=== PATIENT | female | born 1965 | race Caucasian/White ===

== ENCOUNTER → 2016-07-06 | Outpatient (CLI) | payer BC ==
[2014-01-22 07:46] VITALS: BP 125/76
[~2016-07-06] MED LIST: CHOL20004 PO; FOLI1TAB16 PO; IBUP-1027 PO; LEVO25TA4 PO; METH2.5T PO; REGADENOSON 0.4 MG/5 ML DISP.SYRIN. IV ONE; TRAM50TA PO; ZOLP5TAB PO
--- NOTE | 2016-07-06 13:39 | RAD ---
APPROVED REPORT Test Type: Pharmacological Stress Nurse/Tech: Shira Nascimento R.N. Test Indications: HUERTA Cardiac History: family hx Medications: see scanned copy Medical History: see ech Resting ECG: SR Resting Heart Rate: 57 bpm Resting Blood Pressure: 135/72mmHg Pretest Chest Pain: No chest pain Nurse/Tech Notes lungs cta, heart tones regular, good radial pulses Consent: The procedure was explained to the patient in lay terms. Informed consent was witnessed. Ruddy eout was entered into [employer]. History and Stress Test performed by Shira Nascimento R.N. Pharm. Details Pharmacologic stress testing was performed using 0.4mg per 5ml of regadenoson given intravenously ove r 7-10 seconds. Stress Symptoms No chest pain or symptoms. POST EXERCISE Reason for Termination: Infusion complete Target HR: No Max HR: 101 bpm Max Blood Pressure: 129/76mmHg Chest Pain: No. Arrhythmia: No. ST Change: No. INTERPRETATION Stress EKG Conclusion: No evidence of EKG changes with stress. Imaging Protocol IMAGE PROTOCOL: Rest Tc-99m/stress Tc-99m 1 day Rest: Stress: Viability: Radiopharm.Tc99m QpjpsgxxfQu40n Sestamibi Vxps60nJw 38mCi Duration 15min. 10min. Img Date 07/06/2016 07/06/2016 Inj-Img [id number]. 75min. Rest Admin Site:IV - Right AntecubitalAdministrator:SERENA Clark, ARRT (R)(N) Stress Admin Site: IV - Right AntecubitalAdministrator: SERENA Clark, ARRT (R)(N) STRESS DATA End Diast. Vol.67.0mlAv. Heart Rate70.0bpm End Syst. Vol.12.0mlCO Index BSA0.0L/min Myocardial Gaut250.0gEject. Bgfgotox55.0% Stress Rates Pk. Fill Rate3.79EDV/secLVtime Pk. Fill 219.81msec Pk. Empty Rate4.87ESV/secLVtime Pk. Kkzmg256.34msec 06/12 Pk. Fill1.68EDV/sec Stress Scores Regional WT0.00Summed WT0.00 Regional WM0.00Summed WM0.00 The rest and stress images show normal perfusion, normal contraction and thickening. LV Perf. Quant 17 Seg. SSS0.00 17 Seg. SRS0.00 17 Seg. SDS0.00 Stress Defect Extent (% LAD)0.00Rest Defect Extent (% LAD)0.00Rev. Defect Extent (% LAD)0.00 Stress Defect Extent (% LCX) 0.00Rest Defect Extent (% LCX)0.00Rev. Defect Extent (% LCX)0.00 Stress Defect Extent (% RCA)0.00Rest Defect Extent (% RCA)0.00Rev. Defect Extent (% RCA)0.00 Stress Defect Extent (% ANGELITO)0.00Rest Defect Extent (% ANGELITO)0.00Rev. Defect Extent (% ANGELITO)0.00 Other Information Quality:Good Risk Assessment: Low Risk Conclusion 1. No evidence of stress induced EKG changes. 2. Normal myocardial perfusion at stress/rest 3. Normal wall motion with EF of 65% 4. Low risk study.
== END | disposition home or self-care (01) ==
LOC: NM 08:57
PROVIDERS: ATTEND Physician Assistant Medical
DX: R06.09 Other forms of dyspnea (principal); Z82.49 Family history of ischemic heart disease and other diseases of the circulatory system
CPT/HCPCS: 78452; 93017; 96374; A9500; J2785

== ENCOUNTER → 2017-05-10 | Outpatient (CLI) | payer BC ==
[2014-01-22 07:46] VITALS: BP 125/76
[~2017-05-10] MED LIST changes: -CHOL20004 PO; +CHOL200074 PO; -REGADENOSON 0.4 MG/5 ML DISP.SYRIN. IV ONE
--- NOTE | 2017-05-10 11:14 | KCIC ---
EXAM: Abdomen sonogram. HISTORY: Right upper quadrant pain. TECHNIQUE: Sonographic imaging of the abdomen was performed. COMPARISON: None. FINDINGS: The liver is normal in size. There is hepatic steatosis. No focal hepatic lesion is seen. The gallbladder is unremarkable. The common bile duct is normal in caliber. The right kidney, pancreas, inferior vena cava and aorta are unremarkable. IMPRESSION: 1. Hepatic steatosis. 2. Otherwise, unremarkable abdomen sonogram. Electronically signed by: Glenny Dan MD (05/10/2017 11:11 AM) [facility]
== END | disposition home or self-care (01) ==
LOC: KCIC US 08:01
PROVIDERS: ATTEND Physician Assistant Medical
DX: K76.0 Fatty (change of) liver, not elsewhere classified (principal)
CPT/HCPCS: 76705

== ENCOUNTER → 2017-09-19 | Outpatient (CLI) | payer BC ==
[2017-09-19] MEDS: SINCALIDE 1.36 MCG in IV NORMAL SALINE 50ML 30 ML IV (10:39)
== END | disposition home or self-care (01) ==
LOC: NM 09:04
DX: R10.11 Right upper quadrant pain (principal)
CPT/HCPCS: 78226; 96374; 96375; A9537; J2805

== ENCOUNTER → 2017-10-09 | Day surgery (SDC) | payer BC ==
[~2017-10-09] MED LIST changes: -CHOL200074 PO; +DEXAMETHASONE SOD PHOS 20 MG/5 ML VIAL.; -FOLI1TAB16 PO; +GLUCAGON,HUMAN RECOMBINANT 1 MG/ML VIAL.; +GLYCOPYRROLATE 1 MG/5 ML VIAL.; +HYDROmorphone 2 MG/ML VIAL IV; -IBUP-1027 PO; -LEVO25TA4 PO; +LIDOCAINE 1% PF 2 ML VIAL. ID; +LIDOCAINE 2% PF Vial for OR 5 ML VIAL.; -METH2.5T PO; +MIDAZOLAM HCL/PF 2 MG/2 ML VIAL.; +MORPHINE SULFATE 4 MG/ML DISP.SYRIN. IV; +NEOSTIGMINE METHYLSULFATE 5 MG/5 ML SYRINGE.; +ONDANSETRON PF 4 MG/2 ML VIAL.; +PROCHLORPERAZINE 10 MG/2 ML VIAL.; +PROPOFOL 20 ML IV; +ROCURONIUM 50 MG/5 ML VIAL.; +SEVOFLURANE 31 TO 60 MINUTES. IH; +SURGICEL HEMOSTAT 4X8 EACH.; -TRAM50TA PO; -ZOLP5TAB PO; +fentaNYL PF VIAL 100 MCG/2 ML VIAL; +fentaNYL PF VIAL 100 MCG/2 ML VIAL IV; +oxyCODONE/APAP 5/325 1 TAB TABLET
[2017-10-09 07:06] LABS: ADD MAN DIFF? NO
[2017-10-09] MEDS: IV RINGERS,LACTATED 1000ML 1,000 ML IV ×2 (07:16→09:14)
[2017-10-09 07:18] LABS: ANION GAP 10 (6-14); BLOOD UREA NITROGEN 16 mg/dL (7-20); CALCIUM 8.3 mg/dL (8.5-10.1); CARBON DIOXIDE 24 mmol/L (21-32); CHLORIDE 107 mmol/L (98-107); CREATININE 0.7 mg/dL (0.6-1.0); GFR 87.9; GLUCOSE 105 mg/dL (70-99); POTASSIUM 3.9 mmol/L (3.5-5.1); SODIUM 141 mmol/L (136-145)
[2017-10-09 07:24] LABS: ALBUMIN 3.5 g/dL (3.4-5.0); TOTAL BILIRUBIN 0.3 mg/dL (0.2-1.0)
[2017-10-09 07:29] LABS: BASO # 0.1 x10^3/uL (0.0-0.2); BASO % 1 % (0-3); EOS # 0.2 x10^3/uL (0.0-0.7); EOS % 3 % (0-3); HEMATOCRIT 39.7 % (36.0-47.0); HEMOGLOBIN 13.6 g/dL (12.0-15.5); LYMPH # 1.8 x10^3/uL (1.0-4.8); LYMPH % 27 % (24-48); MEAN CORPUSCULAR HEMOGLOBIN 31 pg (25-35); MEAN CORPUSCULAR HGB CONC 34 g/dL (31-37); MEAN CORPUSCULAR VOLUME 92 fL (79-100); MONO % 14 % (0-9); NEUT # 3.6 x10^3uL (1.8-7.7); NEUT % 55 % (31-73); PLATELET COUNT 290 x10^3/uL (140-400); RED BLOOD COUNT 4.33 x10^6/uL (3.50-5.40); RED CELL DISTRIBUTION WIDTH 12.9 % (11.5-14.5); WHITE BLOOD COUNT 6.6 x10^3/uL (4.0-11.0)
[2017-10-09] MEDS: SCOPOLAMINE 1.5MG PATCH. TD (07:29)
[2017-10-09] MEDS: BUPIVACAINE-EPI 0.25%-1:200000 50 ML VIAL. (08:17)
[2017-10-09] MEDS: IOHEXOL 300 MG/ML 100ML VIAL. (08:27)
[2017-10-09] MEDS: PROCHLORPERAZINE 10 MG/2 ML VIAL. IV (09:41)
[2017-10-09] MEDS: fentaNYL PF VIAL 100 MCG/2 ML VIAL IV ×2 (09:41→10:03)
[2017-10-09] MEDS: oxyCODONE/APAP 5/325 1 TAB TABLET PO (10:29)
== END | disposition home or self-care (01) ==
LOC: SURG 06:31
DX: K81.1 Chronic cholecystitis (principal); I10 Essential (primary) hypertension; E03.9 Hypothyroidism, unspecified; F41.9 Anxiety disorder, unspecified; Z79.899 Other long term (current) drug therapy; Z90.710 Acquired absence of both cervix and uterus; Z98.890 Other specified postprocedural states; Z82.49 Family history of ischemic heart disease and other diseases of the circulatory system; Z87.891 Personal history of nicotine dependence; Z88.0 Allergy status to penicillin; E66.9 Obesity, unspecified; Z68.31 Body mass index [BMI] 31.0-31.9, adult; M06.849 Other specified rheumatoid arthritis, unspecified hand; M06.8 Other specified rheumatoid arthritis; Z86.14 Personal history of Methicillin resistant Staphylococcus aureus infection
CPT/HCPCS: 36415; 74300; 80048; 82040; 82247; 85025; 88304; A7015; J0780; J1100; J1610; J1956; J2250; J2405; J2704; J2710; J3010; J3490; J7030; J7120; Q9967

== ENCOUNTER → 2018-09-05 | Outpatient (CLI) | payer BC ==
[2017-10-09 11:45] VITALS: BP 111/59
[~2018-09-05] MED LIST changes: +ACET500T33 PO; +CHOL200074 PO; -DEXAMETHASONE SOD PHOS 20 MG/5 ML VIAL.; +DOCU50CA9 PO; +ERGO500027 PO; +ESCITALOPRAM OXA5 M1 PO; +FOLI1TAB16 PO; -GLUCAGON,HUMAN RECOMBINANT 1 MG/ML VIAL.; -GLYCOPYRROLATE 1 MG/5 ML VIAL.; +HYDR12.58 PO; -HYDROmorphone 2 MG/ML VIAL IV; +IBUP-1027 PO; +LEVO100T5 PO; +LEVO25TA4 PO; -LIDOCAINE 1% PF 2 ML VIAL. ID; -LIDOCAINE 2% PF Vial for OR 5 ML VIAL.; +METH2.5T PO; -MIDAZOLAM HCL/PF 2 MG/2 ML VIAL.; -MORPHINE SULFATE 4 MG/ML DISP.SYRIN. IV; -NEOSTIGMINE METHYLSULFATE 5 MG/5 ML SYRINGE.; -ONDANSETRON PF 4 MG/2 ML VIAL.; +OXYC1TAB15 PO; -PROCHLORPERAZINE 10 MG/2 ML VIAL.; -PROPOFOL 20 ML IV; -ROCURONIUM 50 MG/5 ML VIAL.; -SEVOFLURANE 31 TO 60 MINUTES. IH; -SURGICEL HEMOSTAT 4X8 EACH.; +TRAM50TA PO; +ZOLP10TA PO; +ZOLP5TAB PO; -fentaNYL PF VIAL 100 MCG/2 ML VIAL; -fentaNYL PF VIAL 100 MCG/2 ML VIAL IV; -oxyCODONE/APAP 5/325 1 TAB TABLET
--- NOTE | 2018-09-05 09:59 | KCIC ---
EXAMINATION: Magnetic resonance imaging (MRI) of the lumbar spine without contrast 09/05/2018 8:45 AM HISTORY: Bilateral lower extremity weakness. Chronic low back pain with severe left leg weakness. TECHNIQUE: Multiplanar multi-weighted MRI of the lumbar spine was performed without intravenous contrast using the standard lumbar spine protocol. Contrast information: None administered. COMPARISON: MRI lumbar spine February 20, 2016 FINDINGS: The alignment of the lumbar spine is normal. Vertebral bodies demonstrate normal signal intensity on all sequences. There are no compression fractures. The conus medullaris terminates at the level of L1. The distal spinal cord signal intensity is normal. There is mild disc height loss at L5-S1 with disc desiccation and annular fissure. Limited views of the abdomen and pelvis show no soft tissue abnormality. The aorta is normal. L3-L4: The disc is normal in configuration. There is no facet arthropathy. There is no neuroforaminal stenosis. There is no spinal canal stenosis. L4-L5: There is minimal disc bulge. Is mild facet arthropathy ligamentum flavum infolding. No significant neuroforaminal or spinal canal stenosis. L5-S1: There is mild disc bulge with central disc protrusion. There is mild/moderate facet arthropathy. There is mild bilateral neuroforaminal stenosis. No spinal canal stenosis. IMPRESSION: Mild degenerative changes of the lumbar spine as described in detail above. Electronically signed by: Camille Cortez MD (09/05/2018 9:56 AM) [facility]
== END | disposition home or self-care (01) ==
LOC: KCIC MRI 08:26
PROVIDERS: ATTEND Family Medicine
DX: M47.816 Spondylosis without myelopathy or radiculopathy, lumbar region (principal); M51.26 Other intervertebral disc displacement, lumbar region; M48.062 Spinal stenosis, lumbar region with neurogenic claudication; R53.1 Weakness; Z88.1 Allergy status to other antibiotic agents
CPT/HCPCS: 72148

== ENCOUNTER → 2020-05-13 | Outpatient (CLI) | payer BC ==
[2017-10-09 11:45] VITALS: BP 111/59
--- NOTE | 2020-05-13 16:45 | KCIC ---
Bilateral digital screening mammograms with 3-D tomosynthesis: Reason for examination: Routine screening. Comparison is made to previous studies dated 05/30/2015 and 05/26/2014. Bilateral mammograms in CC and oblique projections were obtained with 2-D imaging and 3-D tomosynthesis imaging on a Siemens Inspiration unit and reviewed on the workstation. Interpretation was made with the benefit of CAD. The skin and nipples show no abnormalities. No abnormal axillary lymph nodes are seen. The breast parenchyma is heterogeneously dense. (Breast density: Category C.) There are nodular parenchymal densities seen bilaterally within the dense parenchyma. Further evaluation with ultrasound is recommended. There are no suspicious calcifications seen. Impression: Dense breast parenchyma with nodular areas of parenchymal density seen bilaterally. Recommend further evaluation with ultrasound.. Your patient's mammogram demonstrates that she has dense breast tissue (breast density category C or D), which could hide abnormalities, and if she has other risk factors for breast cancer that have been identified, she might benefit from supplemental screening tests that may be suggested by you as her ordering physician. Dense breast tissue, in and of itself, is a relatively common condition. Therefore, this information is not provided to cause undue concern, but rather to raise your awareness and to promote discussion with your patient regarding the presence of other risk factors, in addition to dense breast tissue. Your patient's mammography results will be sent to her. BI-RAD Category 0: Incomplete. Needs additional imaging evaluation. "Our facility is accredited by the [employer] Mammography Program." This patient's information has been entered into a reminder system for the patient to be notified with the results of her examination and a target date for the next mammogram. Electronically signed by: Herlinda Henderson MD (05/13/2020 3:04 PM) [facility]
== END ==
LOC: KCIC MAMMO 09:19
PROVIDERS: ATTEND Family Medicine
DX: Z12.31 Encounter for screening mammogram for malignant neoplasm of breast (principal)
CPT/HCPCS: 77063; 77067

== ENCOUNTER → 2020-05-20 | Outpatient (CLI) | payer BC ==
[2017-10-09 11:45] VITALS: BP 111/59
--- NOTE | 2020-05-20 16:08 | RAD ---
Examination: US breast bilateral History: Reason: ABNORMAL MAMMOGRAM CALLBACK / Comparison/Correlation: 05/30/2015 and 05/13/2020 mammogram exam Findings: Whole breast ultrasound bilaterally was performed. Axillary region bilaterally was also clarissa ged. Right subareolar ductal ectasia is present. No suspicious flow in this region. No masses identified. No suspicious fluid collections. No enlarged axillary lymph nodes. Impression: BI-RADS Category 1-negative. Annual screening mammography recommended. Electronically signed by: Ammon Paul MD (05/20/2020 4:06 PM) [id number]
== END ==
LOC: US 13:56
PROVIDERS: ATTEND Family Medicine
DX: N60.41 Mammary duct ectasia of right breast (principal)
CPT/HCPCS: 76641-50

== ENCOUNTER → 2021-10-27 | Outpatient (CLI) | payer BC ==
[2017-10-09 11:45] VITALS: BP 111/59
[~2021-10-27] MED LIST changes: +REGADENOSON 0.4 MG/5 ML DISP.SYRIN. IV ONE
--- NOTE | 2021-10-27 15:54 | RAD ---
MR#: [id number] Date of Study: 10/27/2021 Ordering Physician: JEFF BOLTON, Referring Physician: LAUREANO MADRID Tech: THOMAS Elena APPROVED REPORT Test Type: Pharmacological Stress Nurse/Tech: Meek Silverio RN Test Indications: Chest Pain Cardiac History: Smoker Medications: See Electronic Medical Record Medical History: See Electronic Medical Record Resting ECG: SR Resting Heart Rate: 66 bpm Resting Blood Pressure: 118/71mmHg Pretest Chest Pain: None Nurse/Tech Notes Lungs CTA, S1S2 Consent: The procedure was explained to the patient in lay terms. Informed consent was witnessed. Ruddy eout was entered into [employer]. History and Stress Test performed by THOMAS Elena Pharm. Details Pharmacologic stress testing was performed using 0.4mg per 5ml of regadenoson given intravenously ove r 7-10 seconds. Stress Symptoms No chest pain or symptoms. POST EXERCISE Reason for Termination: Infusion complete Max HR: 133 bpm Max Blood Pressure: 130/60mmHg Blood Pressure response to exercise: Normal blood pressure response during stress. Heart Rate response to exercise: Normal Chest Pain: No. Arrhythmia: No. ST Change: No. INTERPRETATION Stress EKG Conclusion: Baseline EKG showed sinus rhythm. No ischemic changes at peak stress. No arr hythmias. Imaging Protocol IMAGE PROTOCOL: Rest Tc-99m/stress Tc-99m 1 day Rest: Stress: Viability: Radiopharm.Tc99m EdwacnemhFp14s Sestamibi Dose10.5mCi 32mCi Duration 15min. 13min. Img Date 10/27/2021 10/27/2021 Inj-Img [id number]. 60min. Rest Admin Site:IV - Right AntecubitalAdministrator:THOMAS Elena Stress Admin Site: IV - Right AntecubitalAdministrator: Alexi Shaver RT (R)(N) STRESS DATA End Diast. Vol.73.0mlLVEDV index BSA44.0ml End Syst. Vol.18.0mlLVESV index BSA11.0ml Myocardial Vuhm800.0gEject. Ckzabnpl38.0% Stress Scores Regional WT0.00Summed WT0.00 Regional WM0.00Summed WM0.00 Study quality was good. Left Ventricular size was Normal at Rest and Stress. Lung uptake was . Left Ventricular ejection fraction is 74%. The rest and stress images show normal perfusion, normal contraction and thickening. LV Perf. Quant 17 Seg. SSS0.00 17 Seg. SRS0.00 17 Seg. SDS0.00 Stress Defect Extent (% LAD)0.00Rest Defect Extent (% LAD)0.00Rev. Defect Extent (% LAD)0.00 Stress Defect Extent (% LCX) 0.00Rest Defect Extent (% LCX)0.00Rev. Defect Extent (% LCX)0.00 Stress Defect Extent (% RCA)0.00Rest Defect Extent (% RCA)0.00Rev. Defect Extent (% RCA)0.00 Stress Defect Extent (% ANGELITO)0.00Rest Defect Extent (% ANGELITO)0.00Rev. Defect Extent (% ANGELITO)0.00 Conclusion 1. Regadenoson cardioisotope stress test did not show any evidence of ischemia or infarct. 2. Normal left ventricular systolic function with ejection fraction calculated at 74%. 3. Low risk for cardiac events. Signed by : Mark Easley, Electronically Approved : 10/27/2021 15:53:46
== END ==
LOC: NM 08:19
PROVIDERS: ATTEND Internal Medicine Cardiovascular Disease
DX: R07.9 Chest pain, unspecified (principal)
CPT/HCPCS: 78452; 93017; A9500; J2785